=== PATIENT | male | born 1975 | race Caucasian/White ===

== ENCOUNTER 2016-10-27 13:30 | Emergency (ER) | payer MEDICARE, MEDICAID ==
--- NOTE | 2016-10-27 14:51 | EDM.PDOC ---
[id number] 4d BRUISING,NOT FEELING WELL Time Seen by Provider: 10/27/16 14:30 Source of Information: Reports: Patient, Family History Limitations: Reports: No Limitations - History of Present Illness INITIAL COMMENTS - FREE TEXT/NARRATIVE: 41-year-old male who just hasn't felt well for the past week has started running fevers over the past 24 hours, seen a bruising easier and nauseated. No vomiting no diarrhea no shortness of breath. Just generally doesn't feel well. His father thought his urine was darker than normal and possibly had a strong odor. He also has some bruising on the back of his arms which is unusual for him. Onset: Gradual Severity: Mild Associated Symptoms: Denies: Cough, Malaise, Nausea/Vomiting, Shortness of Breath denies Pain Score (Numeric/FACES): 0 - Related Data Allergies Allergy/AdvReac Type Severity Reaction Status Date / Time No Known Allergies Allergy Verified 10/27/16 13:58 Home Meds: Home Meds Alendronate [Fosamax] 70 mg PO ASDIRECTED 10/27/16 [History] Aspirin [Halfprin] 81 mg PO DAILY 10/27/16 [History] Calcium Carbonate [Calcium] 500 mg PO BID 10/27/16 [History] Cholecalciferol (Vitamin D3) [Vitamin D3] 2,000 unit PO DAILY 10/27/16 [History] Metoprolol Succinate [Toprol XL] 25 mg PO DAILY 10/27/16 [History] Phenytoin 100 mg PO ASDIRECTED 10/27/16 [History] Warfarin [Coumadin] 2.5 mg PO DAILY 10/27/16 [History] Past Medical History Neurological History: Reports: Seizure - Past Surgical History Cardiovascular Surgical History: Reports: Other (See Below) Other Cardiovascular Surgeries/Procedures: aortic valve mechanical Social & Family History - Tobacco Use Smoking Status *Q: Never Smoker Second Hand Smoke Exposure: No - Recreational Drug Use Recreational Drug Use: No ED ROS GENERAL - Review of Systems Review Of Systems: See Below Constitutional: Reports: Fever, Chills, Malaise, Weakness HEENT: Denies: Throat Pain Respiratory: Denies: Shortness of Breath, Cough Cardiovascular: Denies: Chest Pain GI/Abdominal: Reports: Nausea : Reports: Other (Strong odor) Skin: Reports: No Symptoms Neurological: Reports: Dizziness. Denies: Headache ED EXAM, GENERAL - Physical Exam Exam: See Below Exam Limited By: No Limitations General Appearance: Alert, No Apparent Distress (Looks uncomfortable but not distressed, chilled from fever), Anxious Neck: Supple Respiratory/Chest: No Respiratory Distress, Lungs Clear Cardiovascular: Regular Rate, Rhythm GI/Abdominal: Soft, Non-Tender Extremities: Normal Inspection. No: Pedal Edema Neurological: Alert, Oriented Psychiatric: Normal Affect, Normal Mood Skin Exam: Warm, Dry Course - Vital Signs Last Recorded V/S: Last Vital Signs Temp 102.1 F H 10/27/16 17:04 Pulse 94 10/27/16 16:18 Resp 14 10/27/16 16:18 BP 109/64 10/27/16 16:18 Pulse Ox 97 10/27/16 16:18 - Orders/Labs/Meds Labs: Laboratory Tests 10/27/16 10/27/16 10/27/16 Range/Units 14:32 14:32 14:32 WBC 17.9 H (4.5-11.0) K/uL RBC 4.01 L (4.30-5.90) M/uL Hgb 12.4 (12.0-15.0) g/dL Hct 33.8 L (40.0-54.0) % MCV 84 (80-98) fL MCH 31 (27-31) pg MCHC 37 H (32-36) % Plt Count 20 L* (150-400) K/uL Neut % (Auto) 91 H (36-66) % Lymph % (Auto) 2 L (24-44) % [place] % (Auto) 6 (2-6) % Eos % (Auto) 0 L (2-4) % Baso % (Auto) 0 (0-1) % PT 51.1 H (9.5-12.0) sec INR 4.49 H* (0.80-1.20) Sodium 128 L (140-148) mmol/L Potassium 4.2 (3.6-5.2) mmol/L Chloride 92 L (100-108) mmol/L Carbon Dioxide 29 (21-32) mmol/L Anion Gap 11.2 (5.0-14.0) mmol/L BUN 16 (7-18) mg/dL Creatinine 1.0 (0.8-1.3) mg/dL Est Cr Clr Drug Dosing 75.42 mL/min Estimated GFR (MDRD) > 60 (>60) Glucose 134 H (74-106) mg/dL Lactic Acid (0.4-2.0) mmol/L Calcium 8.3 L (8.5-10.1) mg/dL Total Bilirubin 3.2 H (0.2-1.0) mg/dL AST 66 H (15-37) U/L ALT 33 (12-78) U/L Alkaline Phosphatase 171 H (46-116) U/L Total Protein 6.9 (6.4-8.2) g/dL Albumin 2.3 L (3.4-5.0) g/dL Globulin 4.6 H (2.3-3.5) g/dL Albumin/Globulin Ratio 0.5 L (1.2-2.2) Urine Color Urine Appearance Urine pH (4.5-8.0) Ur Specific [place] (1.008-1.030) Urine Protein (NEGATIVE) mg/dL Urine Glucose (UA) (NEGATIVE) mg/dL Urine Ketones (NEGATIVE) mg/dL Urine Occult Blood (NEGATIVE) Urine Nitrite (NEGAITVE) Urine Bilirubin (NEGATIVE) Urine Urobilinogen (NORMAL) mg/dL Ur Leukocyte Esterase (NEGATIVE) Urine RBC (0-5) Urine WBC (0-5) Ur Epithelial Cells Amorphous Sediment Urine Bacteria Urine Mucus 10/27/16 10/27/16 Range/Units 14:48 15:35 WBC (4.5-11.0) K/uL RBC (4.30-5.90) M/uL Hgb (12.0-15.0) g/dL Hct (40.0-54.0) % MCV (80-98) fL MCH (27-31) pg MCHC (32-36) % Plt Count (150-400) K/uL Neut % (Auto) (36-66) % Lymph % (Auto) (24-44) % [place] % (Auto) (2-6) % Eos % (Auto) (2-4) % Baso % (Auto) (0-1) % PT (9.5-12.0) sec INR (0.80-1.20) Sodium (140-148) mmol/L Potassium (3.6-5.2) mmol/L Chloride (100-108) mmol/L Carbon Dioxide (21-32) mmol/L Anion Gap (5.0-14.0) mmol/L BUN (7-18) mg/dL Creatinine (0.8-1.3) mg/dL Est Cr Clr Drug Dosing mL/min Estimated GFR (MDRD) (>60) Glucose (74-106) mg/dL Lactic Acid 2.4 H (0.4-2.0) mmol/L Calcium (8.5-10.1) mg/dL Total Bilirubin (0.2-1.0) mg/dL AST (15-37) U/L ALT (12-78) U/L Alkaline Phosphatase (46-116) U/L Total Protein (6.4-8.2) g/dL Albumin (3.4-5.0) g/dL Globulin (2.3-3.5) g/dL Albumin/Globulin Ratio (1.2-2.2) Urine Color [place] Urine Appearance Cloudy Urine pH 7.0 (4.5-8.0) Ur Specific [place] 1.010 (1.008-1.030) Urine Protein 30 H (NEGATIVE) mg/dL Urine Glucose (UA) Normal (NEGATIVE) mg/dL Urine Ketones Negative (NEGATIVE) mg/dL Urine Occult Blood Large (NEGATIVE) Urine Nitrite Negative (NEGAITVE) Urine Bilirubin Small (NEGATIVE) Urine Urobilinogen 8 (NORMAL) mg/dL Ur Leukocyte Esterase Large (NEGATIVE) Urine RBC Semi-packed H (0-5) Urine WBC Semi-packed H (0-5) Ur Epithelial Cells Few Amorphous Sediment Few Urine Bacteria Many Urine Mucus Few Meds: Medications Discontinued Medications Generic Name Dose Route Start Last Admin Trade Name Michael PRN Reason Stop Dose Admin Acetaminophen 650 mg 10/27/16 14:57 10/27/16 15:01 Tylenol PO 10/27/16 14:58 650 mg NOW ONE Administration Sodium Chloride 1,000 mls @ 500 mls/hr 10/27/16 15:45 10/27/16 15:43 Normal Saline IV 500 mls/hr ASDIRECTED IGNACIO Administration Ceftriaxone Sodium 1 gm/ 50 mls @ 100 mls/hr 10/27/16 16:04 10/27/16 16:16 Sodium Chloride IV 10/27/16 16:33 100 mls/hr ONETIME ONE Administration Vancomycin HCl 1 gm/ Sodium 250 mls @ 150 mls/hr 10/27/16 16:40 10/27/16 17: 10 Chloride IV 10/27/16 18:19 150 mls/hr ONETIME ONE Administration Vancomycin HCl Confirm 10/27/16 16:58 10/27/16 17:10 Vancomycin Administered 10/27/16 16:59 Not Given Dose 1 gm .[facility] - Re-Assessments/Exams Free Text/Narrative Re-Assessment/Exam: 10/27/16 14:51 CBC, CMP and UA were obtained. 10/27/16 17:05 UA was strongly positive with packed RBCs, WBCs and bacteria. A urine culture was initiated. CMP was abnormal with elevated bilirubin, alkaline phosphatase and AST. White count was 18,000, platelets only 20,000. This was rechecked and confirmed. After blood cultures were drawn, 1 g of Rocephin and 1 g of vancomycin was given IV. I discussed his case with our hospitalist service and because of the thrombocytopenia it was suggested to transfer to [place] was necessary. This was accepted through the hospitalist and hematology service of [place]. Departure - Departure Time of Disposition: 17:26 Disposition: DC/Tfer to Other 70 Condition: Fair Clinical Impression: Thrombocytopenia, UTI, Urinary tract infectious disease Fever Qualifiers: Fever type: due to other condition Qualified Code(s): R50.81 - Fever presenting with conditions classified elsewhere - Discharge Information Referrals: Brandon Barlow MD [Primary Care Provider] - Forms: ED Department Discharge
[2016-10-27] MEDS ORDERED: Acetaminophen 325 MG Tab PO ONE (14:57)
[2016-10-27] MEDS ORDERED: Sodium Chloride 0.9% 1,000 ML IV SCH (15:45)
[2016-10-27] MEDS ORDERED: cefTRIAXone 1 GM in Sodium Chloride 0.9% 50 ML IV ONE (16:04)
[2016-10-27 16:19] VITALS: BP 109/64
[2016-10-27] MEDS ORDERED: Vancomycin 1 GM SDV ONE (16:58)
== END 2016-10-27 17:28 | disposition other institution (70) ==
LOC: JP.ED 13:30
DX: D69.6 Thrombocytopenia, unspecified (principal); N39.0 Urinary tract infection, site not specified; Z79.82 Long term (current) use of aspirin; Z79.01 Long term (current) use of anticoagulants; Z79.899 Other long term (current) drug therapy
CPT/HCPCS: 36415; 80053; 81001; 83605; 85025; 85610; 87040; 87086; 87088; 87186; 96361; 96365; 96375; 99284; A9270; J0696; J3370; J7040; J7050; 87077

== ENCOUNTER 2016-11-11 18:17 | Emergency (ER) | payer MEDICARE, MEDICAID ==
[2016-11-11] MEDS ORDERED: Acetaminophen 325 MG Tab, 50 Tab Bulk Bottle PO ONE (19:00)
[2016-11-11] MEDS ORDERED: Sodium Chloride 0.9% 1,000 ML IV SCH ×2 (19:00→22:15)
--- NOTE | 2016-11-11 19:12 | EDM.PDOC ---
ED HPI GENERAL MEDICAL PROBLEM - General Chief Complaint: Fever Stated Complaint: ILLNESS Time Seen by Provider: 11/11/16 18:45 Source of Information: Reports: Patient, Family History Limitations: Reports: No Limitations - History of Present Illness INITIAL COMMENTS - FREE TEXT/NARRATIVE: 41-year-old male who was just discharged from the hospital after a 2 week inpatient stay for Escherichia coli urosepsis presents back to the hospital with a fever, malaise, but no other specific symptoms. Denies nausea or vomiting , denies shortness of breath, denies any pain. He has no dysuria. He was on IV Zosyn for 2 weeks, discharged on Cipro and Flagyl by mouth, he is taking his medications and has not vomited. This morning when he woke up he felt weak and chilled and commented to his parents that he thought he needed to go "back to the hospital". Tonight he was not improving so they brought him in. He had a pro time checked today that was 3.1. He arrives with a temperature of 101.4. He denies any other symptoms such as cold symptoms, cough, sore throat, diarrhea and is not complaining of the easy bruising that he presented with several weeks ago. Severity: Moderate Associated Symptoms: Reports: Fever/Chills, Malaise, Weakness. Denies: Chest Pain, Cough, Diaphoresis - Related Data Allergies Allergy/AdvReac Type Severity Reaction Status Date / Time No Known Allergies Allergy Verified 10/27/16 13:58 Home Meds: Home Meds Alendronate [Fosamax] 70 mg PO ASDIRECTED 10/27/16 [History] Aspirin [Halfprin] 81 mg PO DAILY 10/27/16 [History] Calcium Carbonate [Calcium] 500 mg PO BID 10/27/16 [History] Cholecalciferol (Vitamin D3) [Vitamin D3] 2,000 unit PO DAILY 10/27/16 [History] Metoprolol Succinate [Toprol XL] 25 mg PO DAILY 10/27/16 [History] Warfarin [Coumadin] 2.5 mg PO DAILY 10/27/16 [History] levETIRAcetam [Keppra] 500 mg PO BID 11/11/16 [History] metroNIDAZOLE [Flagyl] 500 mg PO TID 11/11/16 [History] Past Medical History Other Cardiovascular History: MECHANICAL AORTIC VALVE Neurological History: Reports: Seizure - Past Surgical History Other HEENT Surgeries/Procedures: 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 Cardiovascular Surgical History: Reports: Other (See Below) Other Cardiovascular Surgeries/Procedures: aortic valve mechanical Social & Family History - Tobacco Use Smoking Status *Q: Unknown Ever Smoked Second Hand Smoke Exposure: No - Recreational Drug Use Recreational Drug Use: No ED ROS GENERAL - Review of Systems Review Of Systems: See Below Constitutional: Reports: Fever, Chills, Malaise, Weakness, Decreased Appetite HEENT: Reports: No Symptoms Respiratory: Denies: Shortness of Breath, Cough Cardiovascular: Denies: Chest Pain, Palpitations Endocrine: Reports: Fatigue GI/Abdominal: Denies: Abdominal Pain, Nausea, Vomiting : Reports: No Symptoms Neurological: Denies: Dizziness, Headache, Syncope Psychiatric: Reports: No Symptoms ED EXAM, GENERAL - Physical Exam Exam: See Below Exam Limited By: No Limitations General Appearance: Alert, No Apparent Distress (Patient is in no distress but does appear tired and uncomfortable.) Eye Exam: Bilateral Eye: Normal Inspection (No jaundice) Throat/Mouth: Normal Inspection Head: Atraumatic Respiratory/Chest: No Respiratory Distress, Lungs Clear Cardiovascular: Regular Rate, Rhythm, Tachycardia (Mild tachycardia) GI/Abdominal: Normal Bowel Sounds, Soft, Non-Tender Extremities: No: Pedal Edema Neurological: Alert, Oriented Psychiatric: Depressed Mood Skin Exam: Warm, Dry Course - Vital Signs Last Recorded V/S: Last Vital Signs Temp 99.6 F 11/11/16 20:46 Pulse 97 11/11/16 20:46 Resp 18 11/11/16 20:46 BP 111/58 L 11/11/16 20:46 Pulse Ox 97 11/11/16 20:46 - Orders/Labs/Meds Orders: Active Orders 24 hr Category Date Time Status CULTURE BLOOD [BC] Urgent Lab 11/11/16 19:10 Received CULTURE BLOOD [BC] Urgent Lab 11/11/16 19:15 Received Blood Culture x2 Reflex Set [OM.PC] Urgent Oth 11/11/16 18:57 Ordered Labs: Laboratory Tests 11/11/16 11/11/16 11/11/16 Range/Units 19:15 19:15 19:15 WBC 23.0 H (4.5-11.0) K/uL RBC 2.88 L (4.30-5.90) M/uL Hgb 8.8 L D (12.0-15.0) g/dL Hct 26.0 L (40.0-54.0) % MCV 90 (80-98) fL MCH 31 (27-31) pg MCHC 34 (32-36) % Plt Count 324 (150-400) K/uL Neut % (Auto) 88 H (36-66) % Lymph % (Auto) 4 L (24-44) % [place] % (Auto) 8 H (2-6) % Eos % (Auto) 0 L (2-4) % Baso % (Auto) 0 (0-1) % Sodium 129 L (140-148) mmol/L Potassium 3.9 (3.6-5.2) mmol/L Chloride 97 L (100-108) mmol/L Carbon Dioxide 22 (21-32) mmol/L Anion Gap 13.9 (5.0-14.0) mmol/L BUN 12 (7-18) mg/dL Creatinine 1.0 (0.8-1.3) mg/dL Est Cr Clr Drug Dosing 70.56 mL/min Estimated GFR (MDRD) > 60 (>60) Glucose 116 H (74-106) mg/dL Lactic Acid 1.3 (0.4-2.0) mmol/L Calcium 7.9 L (8.5-10.1) mg/dL Total Bilirubin 1.2 H D (0.2-1.0) mg/dL AST 50 H (15-37) U/L ALT 68 D (12-78) U/L Alkaline Phosphatase 137 H (46-116) U/L Total Protein 7.6 (6.4-8.2) g/dL Albumin 2.0 L (3.4-5.0) g/dL Globulin 5.6 H (2.3-3.5) g/dL Albumin/Globulin Ratio 0.4 L (1.2-2.2) Urine Color Urine Appearance Urine pH (4.5-8.0) Ur Specific [place] (1.008-1.030) Urine Protein (NEGATIVE) mg/dL Urine Glucose (UA) (NEGATIVE) mg/dL Urine Ketones (NEGATIVE) mg/dL Urine Occult Blood (NEGATIVE) Urine Nitrite (NEGAITVE) Urine Bilirubin (NEGATIVE) Urine Urobilinogen (NORMAL) mg/dL Ur Leukocyte Esterase (NEGATIVE) Urine RBC (0-5) Urine WBC (0-5) Ur Epithelial Cells Amorphous Sediment Urine Bacteria Urine Mucus 11/11/16 Range/Units 19:42 WBC (4.5-11.0) K/uL RBC (4.30-5.90) M/uL Hgb (12.0-15.0) g/dL Hct (40.0-54.0) % MCV (80-98) fL MCH (27-31) pg MCHC (32-36) % Plt Count (150-400) K/uL Neut % (Auto) (36-66) % Lymph % (Auto) (24-44) % [place] % (Auto) (2-6) % Eos % (Auto) (2-4) % Baso % (Auto) (0-1) % Sodium (140-148) mmol/L Potassium (3.6-5.2) mmol/L Chloride (100-108) mmol/L Carbon Dioxide (21-32) mmol/L Anion Gap (5.0-14.0) mmol/L BUN (7-18) mg/dL Creatinine (0.8-1.3) mg/dL Est Cr Clr Drug Dosing mL/min Estimated GFR (MDRD) (>60) Glucose (74-106) mg/dL Lactic Acid (0.4-2.0) mmol/L Calcium (8.5-10.1) mg/dL Total Bilirubin (0.2-1.0) mg/dL AST (15-37) U/L ALT (12-78) U/L Alkaline Phosphatase (46-116) U/L Total Protein (6.4-8.2) g/dL Albumin (3.4-5.0) g/dL Globulin (2.3-3.5) g/dL Albumin/Globulin Ratio (1.2-2.2) Urine Color Yellow Urine Appearance Clear Urine pH 6.0 (4.5-8.0) Ur Specific [place] 1.015 (1.008-1.030) Urine Protein Negative (NEGATIVE) mg/dL Urine Glucose (UA) Normal (NEGATIVE) mg/dL Urine Ketones Negative (NEGATIVE) mg/dL Urine Occult Blood Moderate (NEGATIVE) Urine Nitrite Negative (NEGAITVE) Urine Bilirubin Negative (NEGATIVE) Urine Urobilinogen Normal (NORMAL) mg/dL Ur Leukocyte Esterase Negative (NEGATIVE) Urine RBC 0-5 (0-5) Urine WBC Not seen (0-5) Ur Epithelial Cells Rare Amorphous Sediment Not seen Urine Bacteria Rare Urine Mucus Not seen Meds: Medications Discontinued Medications Generic Name Dose Route Start Last Admin Trade Name Michael PRN Reason Stop Dose Admin Acetaminophen 650 mg 11/11/16 19:00 11/11/16 19:19 Tylenol Bulk Bottle PO 11/11/16 19:01 Not Given NOW ONE Acetaminophen 650 mg 11/11/16 19:16 11/11/16 19:21 Tylenol PO 11/11/16 19:17 650 mg NOW STA Administration Sodium Chloride 1,000 mls @ 500 mls/hr 11/11/16 19:00 11/11/16 19:14 Normal Saline IV 500 mls/hr ASDIRECTED IGNACIO Administration Piperacillin Sod/Tazobactam 50 mls @ 100 mls/hr 11/11/16 20:13 11/11/16 20:39 Sod 3.375 gm/ Sodium Chloride IV 11/11/16 20:42 100 mls/hr ONETIME ONE Administration Sodium Chloride 1,000 mls @ 250 mls/hr 11/11/16 22:15 11/11/16 22:12 Normal Saline IV 250 mls/hr ASDIRECTED IGNACIO Administration - Re-Assessments/Exams Free Text/Narrative Re-Assessment/Exam: 11/11/16 19:12 An IV was started, patient will be given normal saline at 500 mL an hour. CBC, CMP, lactic acid and blood cultures along with a UA will be obtained. 11/11/16 20:18 Acetaminophen was given by mouth, UA returned normal. White count was elevated at 23,000, hemoglobin 8.8. Lactic acid 1.3. Platelets are normal. His condition was discussed with the hospitalist service at [facility] in [place], he was given an IV dose of Zosyn and transferred back to [facility] for admission. He was accepted by the hospitalist service, Dr. Zeng. Patient remained stable but febrile while in the emergency room. Departure - Departure Time of Disposition: 22:11 Disposition: DC/Tfer to Other 70 Condition: Fair Clinical Impression: Sepsis syndrome Fever Qualifiers: Fever type: due to other condition Qualified Code(s): R50.81 - Fever presenting with conditions classified elsewhere - Discharge Information Referrals: Brandon Barlow MD [Primary Care Provider] - Forms: ED Department Discharge Care Plan Goals: Patient is to be transferred by EMS to [facility] for readmission. He was accepted by Dr. Zeng of the hospitalist service. He will be given 3.375 g of Zofran IV and fluids continued. - My Orders Last 24 Hours: My Active Orders 11/11/16 18:57 Blood Culture x2 Reflex Set [OM.PC] Urgent 11/11/16 19:10 CULTURE BLOOD [BC] Urgent 11/11/16 19:15 CULTURE BLOOD [BC] Urgent - Assessment/Plan Last 24 Hours: My Active Orders 11/11/16 18:57 Blood Culture x2 Reflex Set [OM.PC] Urgent 11/11/16 19:10 CULTURE BLOOD [BC] Urgent 11/11/16 19:15 CULTURE BLOOD [BC] Urgent
[2016-11-11] MEDS ORDERED: Acetaminophen 325 MG Tab PO STA (19:16)
[2016-11-11] MEDS ORDERED: Piperacillin/Tazobactam 3.375 GM in Sodium Chloride 0.9% 50 ML IV ONE (20:13)
[2016-11-11 20:47] VITALS: BP 111/58
== END 2016-11-11 22:11 | disposition other institution (70) ==
LOC: JP.ED 18:17
DX: A41.9 Sepsis, unspecified organism (principal); R00.0 Tachycardia, unspecified; Z79.82 Long term (current) use of aspirin; Z79.01 Long term (current) use of anticoagulants; Z79.899 Other long term (current) drug therapy; Z98.890 Other specified postprocedural states
CPT/HCPCS: 36415; 80053; 81001; 83605; 85025; 87040; 96361; 96374; 99284; A9270; J2543; J7040; J7050; 99285

== ENCOUNTER 2019-07-31 22:31 | Emergency (ER) | payer MEDICARE, MEDICAID ==
--- NOTE | 2019-07-31 23:05 | EDM.PDOC ---
ED HPI GENERAL MEDICAL PROBLEM - General Stated Complaint: SEIZURE Time Seen by Provider: 07/31/19 22:45 Source of Information: Reports: Patient, Family History Limitations: Reports: No Limitations - History of Present Illness INITIAL COMMENTS - FREE TEXT/NARRATIVE: 43-year-old male with a long history of seizure disorder, has not had a seizure in the last couple of years. He is on Keppra twice daily. Tonight he was in the process of brushing his teeth, then started walking across the kitchen when he collapsed into a generalized seizure. It lasted 20 to 30 seconds, he had a period of postictal behavior which is typical and then rapidly improved. He did not hurt himself, bite his tongue or become incontinent. Because it is the weekend and the mom could not call neurology, she decided to bring him in to be checked. He now feels fine. He denies any headache, fever, chills, cough or shortness of breath. Mom insists that he has had all his medication. Onset: Sudden Duration: Hour(s): (About an hour ago) Location: Reports: Generalized (Generalized tonic-clonic seizure) Associated Symptoms: Reports: No Other Symptoms - Related Data Allergies Allergy/AdvReac Type Severity Reaction Status Date / Time No Known Allergies Allergy Verified 07/31/19 22:51 Home Meds: Home Meds Alendronate [Fosamax] 70 mg PO ASDIRECTED 10/27/16 [History] Aspirin [Halfprin] 81 mg PO DAILY 10/27/16 [History] Calcium Carbonate [Calcium] 500 mg PO BID 10/27/16 [History] Cholecalciferol (Vitamin D3) [Vitamin D3] 2,000 unit PO DAILY 10/27/16 [History] Warfarin [Coumadin] 2.5 mg PO DAILY 10/27/16 [History] levETIRAcetam [Keppra] 500 mg PO BID 11/11/16 [History] Past Medical History Cardiovascular History: Reports: Heart Valve Replacement Other Cardiovascular History: MECHANICAL AORTIC VALVE Neurological History: Reports: Seizure - Infectious Disease History Infectious Disease History: Reports: Chicken Pox - Past Surgical History Other HEENT Surgeries/Procedures: 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 Cardiovascular Surgical History: Reports: Other (See Below) Other Cardiovascular Surgeries/Procedures: aortic valve mechanical Social & Family History - Tobacco Use Smoking Status *Q: Never Smoker Second Hand Smoke Exposure: No - Caffeine Use Caffeine Use: Reports: Coffee - Recreational Drug Use Recreational Drug Use: No ED ROS GENERAL - Review of Systems Review Of Systems: See Below Constitutional: Denies: Fever, Chills HEENT: Denies: Vision Change Respiratory: Denies: Shortness of Breath Cardiovascular: Denies: Chest Pain GI/Abdominal: Denies: Nausea, Vomiting Skin: Reports: No Symptoms Neurological: Reports: Seizure. Denies: Headache Psychiatric: Reports: No Symptoms ED EXAM, GENERAL - Physical Exam Exam: See Below Exam Limited By: No Limitations General Appearance: Alert, No Apparent Distress Eye Exam: Bilateral Eye: Normal Inspection, PERRL Head: Atraumatic Neck: Normal Inspection, Supple, Non-Tender Respiratory/Chest: No Respiratory Distress, Lungs Clear Cardiovascular: Regular Rate, Rhythm Extremities: Normal Inspection Neurological: Alert, Oriented, Normal Reflexes, No Motor/Sensory Deficits Psychiatric: Normal Affect, Normal Mood Skin Exam: Warm, Dry Course - Vital Signs Last Recorded V/S: Last Vital Signs Temp 97.2 F 07/31/19 22:54 Pulse 57 L 07/31/19 23:20 Resp 14 07/31/19 23:20 BP 119/68 07/31/19 23:20 Pulse Ox 97 07/31/19 23:20 - Orders/Labs/Meds Orders: Active Orders 24 hr Category Date Time Status LEVETIRACETAM (KEPPRA), S Stat Lab 07/31/19 23:00 Received Labs: Laboratory Tests 07/31/19 07/31/19 Range/Units 23:00 23:00 WBC 5.5 (4.5-11.0) K/uL RBC 4.10 L (4.30-5.90) M/uL Hgb 12.2 (12.0-15.0) g/dL Hct 37.9 L (40.0-54.0) % MCV 92 (80-98) fL MCH 30 (27-31) pg MCHC 32 (32-36) % Plt Count 279 (150-400) K/uL Neut % (Auto) 66 (36-66) % Lymph % (Auto) 18 L (24-44) % [place] % (Auto) 14 H (2-6) % Eos % (Auto) 1 L (2-4) % Baso % (Auto) 0 (0-1) % Sodium 141 (140-148) mmol/L Potassium 3.7 (3.6-5.2) mmol/L Chloride 105 (100-108) mmol/L Carbon Dioxide 26 (21-32) mmol/L Anion Gap 9.6 (5.0-14.0) mmol/L BUN 20 H D (7-18) mg/dL Creatinine 1.1 (0.8-1.3) mg/dL Est Cr Clr Drug Dosing 67.35 mL/min Estimated GFR (MDRD) > 60 (>60) Glucose 105 (74-106) mg/dL Calcium 9.0 (8.5-10.1) mg/dL Total Bilirubin 0.5 D (0.2-1.0) mg/dL AST 43 H (15-37) U/L ALT 31 (12-78) U/L Alkaline Phosphatase 59 (46-116) U/L Total Protein 7.1 (6.4-8.2) g/dL Albumin 3.8 (3.4-5.0) g/dL Globulin 3.3 (2.3-3.5) g/dL Albumin/Globulin Ratio 1.2 (1.2-2.2) - Re-Assessments/Exams Free Text/Narrative Re-Assessment/Exam: 07/31/19 23:05 A Keppra level was obtained, along with a CBC and CMP. 07/31/19 23:47 White count and hemoglobin are normal, extended chemistry profile is reassuring which is slight elevation of BUN and AST. All other electrolytes are within normal limits. Keppra level will be available in the next 48 to 72 hours, mother is going to call neuro next week to inform them of the level and ask if any changes need to be made. They will call or return if additional seizure activity occurs prior to the level returning. Departure - Departure Time of Disposition: 00:00 Disposition: Home, Self-Care 01 Clinical Impression: Seizure - Discharge Information Instructions: Seizure, Adult, [id number] Referrals: Brandon Barlow MD [Primary Care Provider] - Forms: ED Department Discharge Care Plan Goals: Continue your current medications, Keppra level should be available in the next 2 to 3 days. Call or return if any additional seizure activity occurs before you are able to contact neuropsychiatry next week. Sepsis Event Note - Evaluation Sepsis Screening Result: No Definite Risk - Focused Exam Vital Signs: Vital Signs Temp Pulse Resp BP Pulse Ox 07/31/19 23:20 57 L 14 119/68 97 07/31/19 22:54 97.2 F 60 14 122/64 97 07/31/19 22:42 96.5 F L 55 L 16 125/67 97 Date Exam was Performed: 08/01/19 Time Exam was Performed: 02:24 - My Orders Last 24 Hours: My Active Orders 07/31/19 23:00 LEVETIRACETAM (KEPPRA), S Stat - Assessment/Plan Last 24 Hours: My Active Orders 07/31/19 23:00 LEVETIRACETAM (KEPPRA), S Stat
[2019-07-31 23:21] VITALS: BP 119/68; PULSE 57
== END 2019-08-01 00:01 | disposition home or self-care (01) ==
LOC: JP.ED 22:31
DX: G40.909 Epilepsy, unspecified, not intractable, without status epilepticus (principal); Z79.82 Long term (current) use of aspirin; Z79.01 Long term (current) use of anticoagulants; Z79.899 Other long term (current) drug therapy
CPT/HCPCS: 36415; 80053; 80177; 85025; 99284

== ENCOUNTER 2021-12-26 22:29 | Emergency (ER) | payer MEDICARE, MEDICAID ==
[2021-12-27 00:08] LABS: ESTIMATED GFR 63 mL/min (>60)
[2021-12-27 00:20] VITALS: BP 117/64; PULSE 57
== END 2021-12-27 01:47 | disposition home or self-care (01) ==
LOC: JP.ED 22:29
DX: R56.9 Unspecified convulsions (principal); Z79.82 Long term (current) use of aspirin; Z79.01 Long term (current) use of anticoagulants
CPT/HCPCS: 36415; 70450; 80053; 80177; 85025; 85610; 99284

== ENCOUNTER 2022-10-10 19:46 | Emergency (ER) | payer MEDICARE, MEDICAID ==
[2022-10-10 20:04] VITALS: BP 140/61; PULSE 58
== END 2022-10-10 21:41 | disposition home or self-care (01) ==
LOC: JP.ED 19:46
DX: S00.411A Abrasion of right ear, initial encounter (principal); Z95.2 Presence of prosthetic heart valve
CPT/HCPCS: 99282

== ENCOUNTER 2022-11-14 06:57 | Emergency (ER) | payer MEDICARE, MEDICAID ==
[2022-11-14 07:10] VITALS: BP 146/73; PULSE 67
[2022-11-14 07:15] LABS: BASOPHILS ABSOLUTE AUTO 0.04 K/uL (0.00-0.10); BASOPHILS PERCENT AUTO 0.4 % (0.1-1.3); EOSINOPHILS ABSOLUTE AUTO 0.04 K/uL (0.00-0.40); EOSINOPHILS PERCENT AUTO 0.4 % (0.0-5.4); HEMOGLOBIN 14.3 g/dL (12.9-16.9); IMMATURE GRAN ABSOLUTE AUTO 0.05 K/uL (0.00-0.23); IMMATURE GRAN PERCENT AUTO 0.5 % (0.0-0.7); LYMPHOCYTES ABSOLUTE AUTO 0.92 K/uL (0.8-3.3); LYMPHOCYTES PERCENT AUTO 8.6 % (11.4-47.7); MEAN CORPUSCULAR HGB CONC 32.5 g/dL (31.6-35.5); MEAN CORPUSCULAR VOLUME 92.2 fL (81.4-99.0); MONOCYTES ABSOLUTE AUTO 0.79 K/uL (0.20-0.90); MONOCYTES PERCENT AUTO 7.3 % (3.3-12.6); NEUTROPHILS ABSOLUTE AUTO 8.92 K/uL (1.0-7.6); NEUTROPHILS PERCENT AUTO 82.8 % (40.0-78.1); PLATELET COUNT,PLT 300 K/uL (130-375); RED BLOOD CELL COUNT 4.77 M/uL (4.14-5.76); WHITE BLOOD CELL COUNT,WBC 10.8 K/uL (3.2-11.0)
[2022-11-14 07:42] LABS: A/G RATIO 1.1 (1.2-2.2); ALANINE AMINOTRANSFERASE,ALT 24 U/L (12-78); ALBUMIN 4.2 g/dL (3.4-5.0); ALKALINE PHOSPHATASE 78 U/L (46-116); ANION GAP 10.6 mmol/L (5.0-14.0); ASPARTATE AMNIOTRANSFERASE,AST 36 U/L (15-37); BILIRUBIN TOTAL 0.4 mg/dL (0.2-1.0); BLOOD UREA NITROGEN,BUN 21 mg/dL (7-18); CALCIUM 8.6 mg/dL (8.5-10.1); CARBON DIOXIDE,CO2 26 mmol/L (21-32); CHLORIDE,CL 103 mmol/L (100-108); CREATININE 1.2 mg/dL (0.8-1.3); EST CRCL DRUG DOSING (CG) 61.69 mL/min; ESTIMATED GFR 76 mL/min (>60); GLUCOSE RANDOM 136 mg/dL (74-106); POTASSIUM,K 3.8 mmol/L (3.6-5.2); PROTEIN TOTAL,TP 7.9 g/dL (6.4-8.2); SODIUM,NA 140 mmol/L (140-148)
[2022-11-14] MEDS ORDERED: Acetaminophen 325 MG Tab PO ONE (07:51)
== END 2022-11-14 08:20 | disposition home or self-care (01) ==
LOC: JP.ED 06:57
DX: S16.1XXA Strain of muscle, fascia and tendon at neck level, initial encounter (principal); Z79.82 Long term (current) use of aspirin; Z79.01 Long term (current) use of anticoagulants; X50.9XXA Other and unspecified overexertion or strenuous movements or postures, initial encounter
CPT/HCPCS: 36415; 80053; 84484; 85025; 93010; 99283; A9270-GY

== ENCOUNTER 2023-01-06 18:09 | Emergency (ER) | payer MEDICARE, MEDICAID ==
[2023-01-06 19:24] VITALS: BP 134/73; PULSE 77
[2023-01-06 19:32] LABS: BASOPHILS ABSOLUTE AUTO 0.03 K/uL (0.00-0.10); BASOPHILS PERCENT AUTO 0.2 % (0.1-1.3); EOSINOPHILS PERCENT AUTO 0.1 % (0.0-5.4); HEMATOCRIT 40.6 % (38.4-49.7); HEMOGLOBIN 13.4 g/dL (12.9-16.9); IMMATURE GRAN ABSOLUTE AUTO 0.06 K/uL (0.00-0.23); IMMATURE GRAN PERCENT AUTO 0.4 % (0.0-0.7); LYMPHOCYTES ABSOLUTE AUTO 0.49 K/uL (0.8-3.3); LYMPHOCYTES PERCENT AUTO 3.2 % (11.4-47.7); MONOCYTES ABSOLUTE AUTO 1.52 K/uL (0.20-0.90); MONOCYTES PERCENT AUTO 9.8 % (3.3-12.6); NEUTROPHILS ABSOLUTE AUTO 13.41 K/uL (1.0-7.6); NEUTROPHILS PERCENT AUTO 86.3 % (40.0-78.1); PLATELET COUNT,PLT 282 K/uL (130-375); RED BLOOD CELL COUNT 4.46 M/uL (4.14-5.76); WHITE BLOOD CELL COUNT,WBC 15.5 K/uL (3.2-11.0)
[2023-01-06 19:38] LABS: EOSINOPHILS ABSOLUTE AUTO 0.01 K/uL (0.00-0.40)
== END 2023-01-06 20:10 | disposition home or self-care (01) ==
LOC: JP.ED 18:09
DX: J03.90 Acute tonsillitis, unspecified (principal); Z86.16 Personal history of COVID-19; Z20.822 Contact with and (suspected) exposure to COVID-19
CPT/HCPCS: 36415; 85025; 87651; 99283; U0002

== ENCOUNTER 2025-02-13 12:40 | Emergency (ER) | payer MEDICAID, MEDICARE ==
[2025-02-13 13:18] VITALS: BP 111/73; PULSE 58
[2025-02-13 13:36] LABS: CORONAVIRUS COVID-19 NAA NEGATIVE (NEGATIVE); INFLUENZA A NAA NEGATIVE (NEGATIVE); INFLUENZA B NAA NEGATIVE (NEGATIVE); RESPIRATORY SYNCYTIAL VIR NAA NEGATIVE (NEGATIVE)
[2025-02-13 13:41] LABS: BASOPHILS PERCENT AUTO 0.3 % (0.1-1.3); EOSINOPHILS ABSOLUTE AUTO 0.05 K/uL (0.00-0.40); EOSINOPHILS PERCENT AUTO 0.8 % (0.0-5.4); IMMATURE GRAN ABSOLUTE AUTO 0.04 K/uL (0.00-0.23); IMMATURE GRAN PERCENT AUTO 0.7 % (0.0-0.7); LYMPHOCYTES ABSOLUTE AUTO 1.20 K/uL (0.8-3.3); LYMPHOCYTES PERCENT AUTO 19.7 % (11.4-47.7); MONOCYTES ABSOLUTE AUTO 0.67 K/uL (0.20-0.90); MONOCYTES PERCENT AUTO 11.0 % (3.3-12.6); NEUTROPHILS ABSOLUTE AUTO 4.11 K/uL (1.0-7.6); NEUTROPHILS PERCENT AUTO 67.5 % (40.0-78.1); PLATELET COUNT,PLT 364 K/uL (130-375); RED BLOOD CELL COUNT 4.52 M/uL (4.14-5.76); WHITE BLOOD CELL COUNT,WBC 6.1 K/uL (3.2-11.0)
[2025-02-13 13:42] LABS: BASOPHILS ABSOLUTE AUTO 0.02 K/uL (0.00-0.10)
== END 2025-02-13 14:35 | disposition home or self-care (01) ==
LOC: JP.ED 12:40
DX: J40 Bronchitis, not specified as acute or chronic (principal); Z95.2 Presence of prosthetic heart valve; Z79.82 Long term (current) use of aspirin; Z79.01 Long term (current) use of anticoagulants; Z79.899 Other long term (current) drug therapy
CPT/HCPCS: 36415; 85025; 87637; 99283; 99284